=== PATIENT | female | born 1975 | race Two or more races ===

== ENCOUNTER 2021-12-28 06:03 | Outpatient (CLI) | payer BC, OTHER | END 2021-12-28 23:59 | disposition home or self-care (01) | LOC: LAB 06:03 | PROVIDERS: ATTEND Internal Medicine Gastroenterology | DX: Z01.812 Encounter for preprocedural laboratory examination (principal); Z20.822 Contact with and (suspected) exposure to COVID-19 ==

== ENCOUNTER 2021-12-31 12:31 | Day surgery (SDC) | payer BC, OTHER ==
[2021-12-31] MEDS ORDERED: PROPOFOL 200 MG/20 ML BOTTLE IV ONE (12:32)
[2021-12-31] MEDS ORDERED: LIDOCAINE-MPF 2% 5 ML VIAL IJ ONE (12:32)
[2021-12-31 13:21] LABS: HEMATOCRIT 39.7 % (31.2-41.9); MEAN CORPUSCULAR HEMOGLOBIN 29.9 uug (24.7-32.8); MEAN CORPUSCULAR VOLUME 89.9 fL (75.5-95.3); PLATELET COUNT (AUTO) 261 K/uL (179-408)
[2021-12-31 13:23] LABS: *BILIRUBIN,URIN NEGATIVE (NEGATIVE); *BLOOD, URINE 3+ (NEGATIVE); *COLOR,URINE YELLOW (YELLOW); *KETONES,URINE NEGATIVE (NEGATIVE); *UROBILINOGEN,URINE 0.2 E.U./dl (NORMAL); LEUKOCYTE ESTERASE ,URINE NEGATIVE (NEGATIVE); NITRITE, URINE NEGATIVE (NEGATIVE); PH,URINE 5.5 (5.0-8.0); UGLUCOSE NEGATIVE (NEGATIVE)
[2021-12-31 13:29] LABS: *URINE HCG, QUAL NEG (NEGATIVE)
[2021-12-31 13:38] LABS: BILIRUBIN,TOTAL 0.9 mg/dL (0.2-1.0); CREATININE 0.7 mg/dL (0.6-1.3); POTASSIUM 3.8 mmol/L (3.5-5.1); TOTAL PROTEIN, SERUM 7.8 g/dL (6.4-8.2)
[2021-12-31 16:51] LABS: *CLARITY,URINE HAZY (CLEAR); BACTERIA,URINE FEW /HPF (NONE SEEN); SQUAMOUS EPITHELIAL CELL,UR FEW /HPF (NONE SEEN); URINE AMORPHOUS URATE MODERATE /HPF; WBC,URINE 0-3 /HPF (0-3)
== END 2021-12-31 15:55 | disposition home or self-care (01) ==
LOC: DS 12:31
PROVIDERS: ATTEND Internal Medicine Gastroenterology
DX: K59.00 Constipation, unspecified (principal); K64.8 Other hemorrhoids; K63.89 Other specified diseases of intestine; Z79.899 Other long term (current) drug therapy; Z98.890 Other specified postprocedural states
CPT/HCPCS: 36415; 45378; 80053; 81001; 84703; 85025; 85730; J7120; A4217; A4663; J3490

== ENCOUNTER 2025-03-16 08:28 | Day surgery (SDC) | payer BC, OTHER ==
[2025-03-16 09:35] LABS: *BILIRUBIN,URIN NEGATIVE (NEGATIVE); *BLOOD, URINE TRACE (NEGATIVE); *CLARITY,URINE CLEAR (CLEAR); *COLOR,URINE YELLOW (YELLOW); *KETONES,URINE NEGATIVE (NEGATIVE); *PROTEIN,URINE NEGATIVE (NEGATIVE); *URINE HCG, QUAL NEGATIVE (NEGATIVE); *UROBILINOGEN,URINE 0.2 E.U./dl (NORMAL); LEUKOCYTE ESTERASE ,URINE NEGATIVE (NEGATIVE); NITRITE, URINE NEGATIVE (NEGATIVE); UGLUCOSE NEGATIVE (NEGATIVE)
[2025-03-16 09:36] LABS: BACTERIA,URINE FEW /HPF (NONE SEEN); SQUAMOUS EPITHELIAL CELL,UR FEW /HPF (NONE SEEN); WBC,URINE 0-3 /HPF (0-3)
[2025-03-16 09:39] LABS: ALBUMIN 3.6 g/dL (3.4-5.0); BILIRUBIN,TOTAL 0.7 mg/dL (0.2-1.0); CALCIUM 9.5 mg/dL (8.5-10.1); CREATININE 0.7 mg/dL (0.6-1.3); POTASSIUM 4.3 mmol/L (3.5-5.1); TOTAL PROTEIN, SERUM 7.4 g/dL (6.4-8.2)
[2025-03-16] MEDS ORDERED: FENTANYL CITRATE 100 MCG/2 ML AMPUL ONE ×3 (09:54→12:19)
[2025-03-16] MEDS ORDERED: MIDAZOLAM HCL 2 MG/2 ML VIAL ONE (09:54)
[2025-03-16] MEDS ORDERED: SUCCINYLCHOLINE CHLORIDE 200 MG/10 ML VIAL ONE (09:55)
[2025-03-16] MEDS ORDERED: ROCURONIUM BROMIDE 50 MG/5 ML VIAL ONE (09:55)
[2025-03-16] MEDS ORDERED: FAMOTIDINE. 20 MG/2 ML VIAL IV ONE (09:55)
[2025-03-16] MEDS ORDERED: SEVOFLURANE 250 ML BOTTLE ONE (09:57)
[2025-03-16] MEDS ORDERED: LIDOCAINE 1%-EPI 1:100,000 20 ML VIAL ONE (09:58)
[2025-03-16] MEDS ORDERED: FENTANYL CITRATE 100 MCG/2 ML AMPUL IV PRN (11:45)
[2025-03-16] MEDS ORDERED: HYDROMORPHONE 1 MG/1 ML DISP.SYRIN IV PRN (11:45)
[2025-03-16] MEDS ORDERED: NALOXONE HCL 0.4 MG/ML AMPUL IV PRN (11:45)
[2025-03-16] MEDS ORDERED: PROPOFOL 200 MG/20 ML BOTTLE ONE (12:00)
[2025-03-16] MEDS: FENTANYL CITRATE 100 MCG/2 ML AMPUL IV PRN (12:09)
[2025-03-16] MEDS ORDERED: HYDROCODONE/APAP 5-325MG TABLET ONE (13:25)
[2025-03-16] MEDS: HYDROCODONE/APAP 5-325MG TABLET PO STA (13:28)
[2025-03-16 14:10] VITALS: TEMP 98.2
== END 2025-03-16 14:10 | disposition home or self-care (01) ==
LOC: DS 08:28
PROVIDERS: ATTEND Otolaryngology
DX: K11.5 Sialolithiasis (principal); K11.20 Sialoadenitis, unspecified; Z79.899 Other long term (current) drug therapy; Z98.890 Other specified postprocedural states
CPT/HCPCS: 42440; 80053; 81001; 84703; 36415; 88305; 15733; J0690; J1100; J1308; J3490 ×4; J2765; J2250; J2405; J0330; J3010 ×3; J7120; A4649; A4663